=== PATIENT | male | born 1995 | race African-American/Black ===

== ENCOUNTER 2018-01-23 23:36 | Emergency (ER) | payer SELFPAY, OTHER ==
[2018-01-24] MEDS: CEPHALEXIN 500 MG CAP PO (00:39)
== END 2018-01-24 01:07 | disposition home or self-care (01) ==
LOC: M ED 23:36
DX: L03.115 Cellulitis of right lower limb (principal); L08.9 Local infection of the skin and subcutaneous tissue, unspecified
CPT/HCPCS: 99284